=== PATIENT | female | born 1970 | race Caucasian/White ===

== ENCOUNTER 2017-12-13 20:13 | Emergency (ER) | payer OTHER ==
[~2017-12-13] VITALS: Ht 172.7 cm; Wt 147.4 kg
--- NOTE | 2017-12-13 20:13 | NUR ---
Pt was triaged by myself at 1999 , pt name was not registered by front counter clerk.
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
--- NOTE | 2017-12-13 20:16 | NUR ---
Patient to ER bed H1 to gown for evaluation. Side rails up.
[2017-12-13 20:17] VITALS: BP_SYST 136
[2017-12-13 20:21] VITALS: BP_SYST 132
== END 2017-12-13 20:21 ==
LOC: SED 20:13
DX: L98.8 Other specified disorders of the skin and subcutaneous tissue (principal); R03.0 Elevated blood-pressure reading, without diagnosis of hypertension; E66.9 Obesity, unspecified; Z68.42 Body mass index [BMI] 45.0-49.9, adult; Z88.6 Allergy status to analgesic agent; Z90.89 Acquired absence of other organs
CPT/HCPCS: 99283

== ENCOUNTER 2017-12-14 00:05 | Emergency (ER) | payer OTHER ==
[~2017-12-14] VITALS: Ht 172.7 cm; Wt 147.4 kg
[2017-12-14 00:14] VITALS: BP_SYST 163
[2017-12-14 01:12] VITALS: BP_SYST 142
== END 2017-12-14 01:12 | disposition home or self-care (01) ==
LOC: SED 00:05
DX: I10 Essential (primary) hypertension (principal); Z86.14 Personal history of Methicillin resistant Staphylococcus aureus infection; Z88.6 Allergy status to analgesic agent; Z90.49 Acquired absence of other specified parts of digestive tract
CPT/HCPCS: 99283

== ENCOUNTER 2019-05-24 11:11 | Inpatient (IN) | payer MEDICAID, OTHER ==
[~2019-05-24] VITALS: Ht 172.7 cm; Wt 202.8 kg
[2019-05-24 11:14] VITALS: BP_SYST 156
--- NOTE | 2019-05-24 11:19 | NUR ---
Patient to ER bed 06 to gown for evaluation. Side rails up.
--- NOTE | 2019-05-24 11:30 | NUR ---
pt arrives via bls s/p fall. Pt was found on the floor at [facility]. She was discovered by paramedics lying on her feces. Pt is not c/o any pain at the moment. However, she appears to be altered. blue line trimmer.
--- NOTE | 2019-05-24 11:35 | NUR ---
ER at bedside examining patient.
--- NOTE | 2019-05-24 12:01 | NUR ---
UA and UDS obtained via straight via and sent to lab.
--- NOTE | 2019-05-24 12:10 | NUR ---
cleaned pt w/ soup and water. Pt was covered w/ dry feces. noticed open sores over the pt's BUE and BLE Addendum: 05/24/19 at 1558 by DEEPA cleansed w/ soap and water
[2019-05-24 12:25] LABS: BASOPHILS # (AUTO) 0.1 K/uL (0.0-0.2); BASOPHILS % (AUTO) 0.8 % (0.0-2.0); EOSINOPHILS % (AUTO) 0.1 % (0.0-4.0); HEMATOCRIT 46.3 % (36-48); HEMOGLOBIN 14.6 g/dL (12.0-16.0); LYMPHOCYTES # (AUTO) 0.8 K/uL (1.0-5.5); LYMPHOCYTES % (AUTO) 11.2 % (20.5-51.5); MEAN CORPUSCULAR HEMOGLOBIN 29 pg (27-31); MEAN CORPUSCULAR HGB CONC 32 % (32-36); MEAN CORPUSCULAR VOLUME 90 fL (79.0-98.0); MONOCYTES # (AUTO) 0.4 K/uL (0.0-1.0); MONOCYTES % (AUTO) 4.9 % (1.7-9.3); NEUTROPHILS # (AUTO) 6.3 K/uL (1.8-7.7); PLATELET COUNT (AUTO) 251 K/uL (130-430); RED BLOOD CELL COUNT(AUTO) 5.14 MIL/uL (4.2-6.2); RED CELL DISTRIBUTION WIDTH 16.6 % (9.0-15.0); WHITE BLOOD COUNT (AUTO) 7.5 K/uL (4.8-10.8)
[2019-05-24 12:38] LABS: CREATININE 1.08 mg/dL (0.55-1.30); POTASSIUM 4.8 mmol/L (3.5-5.1)
[2019-05-24 12:44] LABS: ALBUMIN 3.5 g/dL (3.4-4.8); TOTAL BILIRUBIN 1.7 mg/dL (0.0-1.0)
[2019-05-24 13:08] LABS: BILIRUBIN,URINE NEGATIVE (NEGATIVE); BLOOD, URINE NEGATIVE (NEGATIVE); CLARITY/URINE CLEAR (CLEAR); COLOR,URINE YELLOW (YELLOW); GLUCOSE,URINE NEGATIVE (NEGATIVE); KETONES,URINE NEGATIVE (NEGATIVE); LEUKOCYTE ESTERASE ,URINE NEGATIVE (NEGATIVE); NITRITE, URINE NEGATIVE (NEGATIVE); PH,URINE 5.5 (5.0-8.0); PROTEIN URINE 1+ (NEGATIVE); UROBILINOGEN,URINE 0.2 (0.2-1.0)
--- NOTE | 2019-05-24 13:15 | NUR ---
Pt resting at this time, no S/S of distress.
[2019-05-24 13:18] LABS: BACTERIA,URINE FEW /HPF (None Seen); RBC,URINE 0-3 /HPF (0-3); WBC,URINE 0-3 /HPF (0-3)
[2019-05-24 13:25] LABS: BARBITURATE, URINE NEGATIVE (NEG <=200); BENZODIAZEPINE, URINE POSITIVE (NEG <=150); CANNABINOID, URINE POSITIVE (NEG <=50); COCAINE, URINE NEGATIVE (NEG <=150); METHAMPHETAMINES SCREEN,URINE POSITIVE (NEG <=500); OPIATE, URINE NEGATIVE (NEG <=100); PHENCYCLIDINE SCREEN,URINE NEGATIVE (NEG <=25); UR TRICYCLIC ANTIDEPRESSANTS NEGATIVE (NEG <=300); URINE AMPHETAMINE POSITIVE (NEG <=500); URINE METHADONE NEGATIVE (NEG <=200); URINE OXYCODONE SCREEN NEGATIVE (NEG <=100); URINE PROPOXYPHENE SCREEN NEGATIVE (NEG <=300)
[2019-05-24] MEDS ORDERED: PIPERACILLIN/TAZO 3.375 GM in NS 50 ML IV ONE (13:30)
[2019-05-24] MEDS ORDERED: ASPIRIN 81 MG TAB.CHEW PO ONE (13:45)
--- NOTE | 2019-05-24 13:45 | NUR ---
# 22 gauge angiocath placed to left hand. Use of asceptic technique. Opsite placed over site. Blood return noted. Blood for lab drawn from site. Flushed with 10 cc of normal saline. No evidence of infiltration noted. Patient tolerated well.
[2019-05-24] MEDS ORDERED: PIPERACILLIN/TAZOBACTAM 3.375 GM/VIAL (ZOSYN) IV ONE (13:53)
--- NOTE | 2019-05-24 14:51 | NUR ---
unable to obtain home med info at the moment
--- NOTE | 2019-05-24 15:35 | NUR ---
Patient will be admitted to care of Dr. Simons. Admitted to tele unit. Will go to room 123-a. Belongings list completed. Complete and up to date summary report printed. SBAR report to be given at bedside with opportunity for questions. Bedside report given to Belle SHERMAN
--- NOTE | 2019-05-24 15:45 | NUR ---
Opening Note received bedside SBAR report from ACTIVITIES COORDINATOR, patient brought to room via gurney, respirations even and unlabored on room air, no acute distress noted, patient placed on tele monitor, patient denies any pain, educated patient on use of call light and asked to call for assistance, patient verbalized understanding, call light in reach, bed in low and locked position, bed alarm on, contact isolation precautions in place.
[2019-05-24 16:00] VITALS: BP_SYST 178
--- NOTE | 2019-05-24 16:16 | NUR ---
Spoke with Physician spoke with Dr. Simons, informed him of patients current BP 178/117, new medication orders received, verified with telephone read back.
[2019-05-24] MEDS ORDERED: CARVEDILOL 25 MG TABLET (COREG) PO ONE (16:30)
--- NOTE | 2019-05-24 18:06 | NUR ---
Physician Rounds Dr. Simons at bedside examining patient.
[2019-05-24] MEDS ORDERED: LevALBUTEROL HCL 1.25 MG/0.5 ML *CONC.* VIAL.NEB (XOPENEX CONC.) INH PRN (18:15)
[2019-05-24] MEDS ORDERED: cloNIDine HCL 0.1 MG TABLET PO PRN (18:30)
[2019-05-24] MEDS ORDERED: LevALBUTEROL HCL 1.25 MG/0.5 ML *CONC.* VIAL.NEB (XOPENEX CONC.) INH ONE (18:30)
[2019-05-24 18:37] VITALS: BP_SYST 178
--- NOTE | 2019-05-24 18:42 | NUR ---
CONSULTATION Reason for Consultation: SUBSTANCE ABUSE Was consult called: Y Person who was notified: Consulting Physician: SAID Visual Arts Teacher Ordering Physician:
--- NOTE | 2019-05-24 18:45 | NUR ---
CONSULTATION Reason for Consultation: ABNORMAL CARDIAC ENZYMES Was consult called: Y Person who was notified: JERROD Consulting Physician: Senior Telecommunications Engineer Ordering Physician:
[2019-05-24] MEDS: cefTRIAXone 1 GM in D5W 50 ML IV SCH (19:00)
--- NOTE | 2019-05-24 19:35 | NUR ---
Closing Note bedside SBAR report given to receiving RN, patient resting in bed, no acute distress noted, respirations even and unlabored on room air, educated patient on use of call light and asked to call for assistance, patient verbalized understanding, call light in reach, bed in low and locked position, bed alarm on, care endorsed to table games shift manager RN.
--- NOTE | 2019-05-24 19:40 | NUR ---
Pt was received lying in bed sleeping, but easily arousable. Respirations are unlabored. Saline lock in left hand is without any signs of infiltration. Call light is with pt and bed alarm is on.
[2019-05-24 20:00] VITALS: BP_SYST 123
[2019-05-24] MEDS: CARVEDILOL 25 MG TABLET (COREG) PO SCH (20:36)
[2019-05-24] MEDS: AZITHROMYCIN 500 MG in NS 250 ML IV SCH (20:36)
[2019-05-24] MEDS: ENOXAPARIN SODIUM 40 MG/0.4 ML SYRINGE SUBCUT SCH (20:38)
--- NOTE | 2019-05-24 21:15 | NUR ---
Pt continues to sleep without any respiratory distress noted. Fall and safety precautions are in place.
--- NOTE | 2019-05-24 23:00 | NUR ---
Pt is sleeping without any distress noted. Saline lock is intact in left hand. Fall and safety precautions are in place.
[2019-05-25 00:17] VITALS: BP_SYST 122
[2019-05-25 00:20] VITALS: BP_SYST 133
--- NOTE | 2019-05-25 01:00 | NUR ---
Pt is sleeping comfortably in bed. security monitor is showing SR. Saline lock is intact in left hand. Fall and safety precautions are in place.
[2019-05-25] MEDS: LevALBUTEROL HCL 1.25 MG/0.5 ML *CONC.* VIAL.NEB (XOPENEX CONC.) INH SCH ×4 (01:01→20:01)
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
[2019-05-25 02:40] VITALS: BP_SYST 125
--- NOTE | 2019-05-25 03:32 | NUR ---
Pt is sleeping quietly in bed. laboratory monitor is showing SR with HR in the 60's. Fall and safety precautions are in place.
--- NOTE | 2019-05-25 05:00 | NUR ---
Sleeping comfortably in bed. Fall and safety precautions are in place.
[2019-05-25 05:56] LABS: CALCIUM 8.8 mg/dL (8.4-11.0); CREATININE 1.11 mg/dL (0.55-1.30); POTASSIUM 5.1 mmol/L (3.5-5.1)
--- NOTE | 2019-05-25 06:02 | NUR ---
Dr. Morrison also paged for elevated Troponin.
--- NOTE | 2019-05-25 06:02 | NUR ---
Paged Dr Morrison regarding consultation. Called the number [phone] Spoke with Tremaine. Reason for Consultation: Abnormal Cardiac Enzymes Consulting Physician: Enoch Montero Requesting Physician: Richard Mcnair
[2019-05-25 06:34] LABS: BASOPHILS # (AUTO) 0.1 K/uL (0.0-0.2); BASOPHILS % (AUTO) 1.1 % (0.0-2.0); EOSINOPHILS # (AUTO) 0.1 K/uL (0.0-0.4); EOSINOPHILS % (AUTO) 0.8 % (0.0-4.0); HEMATOCRIT 40.8 % (36-48); LYMPHOCYTES % (AUTO) 13.3 % (20.5-51.5); MEAN CORPUSCULAR HEMOGLOBIN 29 pg (27-31); MEAN CORPUSCULAR HGB CONC 32 % (32-36); MEAN CORPUSCULAR VOLUME 90 fL (79.0-98.0); MONOCYTES # (AUTO) 0.6 K/uL (0.0-1.0); MONOCYTES % (AUTO) 8.5 % (1.7-9.3); NEUTROPHILS # (AUTO) 5.5 K/uL (1.8-7.7); NEUTROPHILS % (AUTO) 76.3 % (40.0-70.0); PLATELET COUNT (AUTO) 254 K/uL (130-430); RED BLOOD CELL COUNT(AUTO) 4.51 MIL/uL (4.2-6.2); RED CELL DISTRIBUTION WIDTH 16.3 % (9.0-15.0); WHITE BLOOD COUNT (AUTO) 7.2 K/uL (4.8-10.8)
--- NOTE | 2019-05-25 06:34 | NUR ---
Pt is awake and resting comfortably in bed. All pt's needs were attended to. Fall and safety precautions are in place. Will endorse to day shift nurse.
--- NOTE | 2019-05-25 06:40 | NUR ---
Spoke with Dr. Morrison and he was informed pt's Troponin went up from 0.648 yesterday to 0.[address] Morrison was also informed pt had some V Tachs during the night while being transferred to a big boy bed, but pt was asymptomatic. 12 lead EKG ordered by Dr. Morrison.
--- NOTE | 2019-05-25 06:40 | NUR ---
ANOTHER CALL WAS CALLED TO CARDIO MD, DR ART, RE: ELEVATED TROP. SPOKE TO SOO.
--- NOTE | 2019-05-25 08:00 | NUR ---
initial notes rec patient asleep but arousable to stimuli. resp easy and unlabored. no sob noted. call light within reached and knows when to call for assistance. bed to the lowest position and side rails up and locked.
--- NOTE | 2019-05-25 09:41 | NUR ---
Nutrition Update Roberto Scale 14 noted. Pt admitted for pneumonia. Diet: 2 gm Na BMI: 76.9 kg/m2 RD to follow per nutrition care standards.
--- NOTE | 2019-05-25 09:47 | NUR ---
rounds seen by dr guallpa at bedside. due meds to be given. no osb noted. call light withn reached.
[2019-05-25] MEDS ORDERED: LISINOPRIL 10 MG TABLET (PRINIVIL) PO ONE (10:00)
[2019-05-25] MEDS ORDERED: FUROSEMIDE 40 MG TABLET PO ONE (10:00)
[2019-05-25] MEDS: ASPIRIN 81 MG TAB.CHEW PO SCH (10:11)
[2019-05-25] MEDS: CARVEDILOL 25 MG TABLET (COREG) PO SCH ×2 (10:11→21:02)
--- NOTE | 2019-05-25 10:30 | NUR ---
rounds seen by dr santiago. due meds given and terrence well and goes back to sleep after. no sob noted.
--- NOTE | 2019-05-25 12:00 | NUR ---
rounds father visited and updated re pt's condition and poc. no sob noted. call light within reached.
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
[2019-05-25 12:18] VITALS: BP_SYST 134
--- NOTE | 2019-05-25 16:02 | NUR ---
WOUND EVALUATION: Wound Consult received from Dr. Simons. Thank you, Dr. Simons, for the consult. Patient received in a geriatric bed with a low air-loss mattress (low air-loss therapy was already initiated), awake, alert, and oriented. Patient is unable to turn independently. Roberto Score is a 14. Past Medical History: Hypertension, Morbid Obesity, substance abuse. Recent Labs: WBC 6.8, RBC 4.42, hemoglobin 12.6, hematocrit 40.1, BUN 19, creatinine 1.11, GFR 55, BNP 399. Microbiology: Blood culture results 2 in progress. MRSA screen results negative. Intrinsic factors that delay wound healing: Morbid Obesity. Extrinsic factors that delay wound healing: Decreased mobility. Wound Assessment: 1. Right Anterior-Lateral Abdominal Fold: Acute on chronic wound, present on admission. Patient says it was a surgical wound that was debrided. Wound bed has 80% dark red tissue, 10% black tissue, 10% yellow tissue. Foul odor, scant yellow purulent drainage. Periwound macerated. Surrounding tissue has scar tissue. Wound measures 0.5 cm x 3.4 cm. Recommend: Cleanse wound with normal saline. Apply moisture barrier cream onto periwound. Apply Venelex ointment to wound bed. Cover with foam dressing by inserting dressing into abdominal fold with fingers to maintain contact with wound. Perform wound care daily, and as needed for dressing soiling or dislodgment. Apply inter-dry AG cloth into abdominal fold area (except for wound dressing). Change inter-dry AG cloth every 5 days, and as needed for soiling. 2. Right Second Toe, Plantar Aspect: Chronic wound, present on admission. Wound bed has 95% black eschar, 5% yellow eschar. No odor, no drainage. Periwound intact. Dry, stable. Wound measures 0.6 cm x 1.4 cm. 3. Right Plantar Heel: Chronic wound, present on admission. Wound bed has 90% yellow eschar, 10% white eschar. No odor, no drainage. Periwound intact. Dry, stable. Wound measures 0.7 cm x 0.9 cm. Recommend: No dressings needed. Continue to monitor sites every shift. 4. Left Plantar Heel: Fissure, present on admission. Fissure has 100% hard black tissue. No odor, no drainage. Periwound intact. Dry, stable. Fissure measures 3.5 cm x 0.4 cm x 0.3 cm. Recommend: Cleanse involved area with mild soap and water. Pat dry. Apply Eucerin cream to involved area. Perform site care twice a day. 5. Left Lateral Foot: Multiple areas of brown discoloration, present on admission. No odor, no drainage. Recommend: No dressing needed. Continue to monitor site every shift. Offload bilateral heels and feet at all times. 6. Left Lateral Oral Commissure: Angular Cheilitis, present on admission. Area has 90% dark red tissue, 10% black scab. No odor, no drainage. Periwound intact. Site measures 1.0 cm x 0.5 cm. Recommend: Cleanse wound with normal saline. Apply saline soaked 1x4 gauze 7. Left Lower Extremity: Erythema, cool, and nonpitting edema above the knees, Erythema, calor, and nonpitting edema below the knees, present on admission. 8. Right Lower Extremity: Erythema, calor, and nonpitting edema above the knees, Erythema, calor, and nonpitting edema below the knees, present on admission. 9. Left Foot: Dry skin, callused heel, present on admission. 10. Right Foot: Dry skin, callused heel, dry fissure on right great toe, present on admission. Recommend: Cleanse involved areas with mild soap and water. Pat dry. Apply Eucerin cream to involved areas. Perform site care twice a day. Also recommend: Encourage and assist patient as needed with repositioning every 2 hours with pillow support and off-load pressure areas with pillows for pressure re-distribution. Offload, elevate and float bilateral heels with pillows. Perform skin care and monitor skin integrity Q shift. Use moisture barrier cream on buttocks and other moisture susceptible areas QID and as needed for soiling. Maintain patient on a geriatric bed with a low air-loss mattress.
[2019-05-25 16:13] VITALS: BP_SYST 110
[2019-05-25] MEDS: chlordiazePOXIDE HCL 25 MG CAPSULE PO PRN ×2 (16:18→22:10)
[2019-05-25] MEDS: ACETAMINOPHEN 325 MG TABLET PO PRN (16:19)
[2019-05-25] MEDS: cefTRIAXone 1 GM in D5W 50 ML IV SCH (18:41)
[2019-05-25] MEDS ORDERED: KETOROLAC TROMETHAMINE 15 MG VIAL IVP ONE (19:00)
--- NOTE | 2019-05-25 19:09 | NUR ---
Opening Note Received patient resting in bed, awake and asking for another blanket. No s/sx of distress. IV site to left hand is KVO. Patient is on LOL mattress, side rails up 3x, bed is locked in lowest position and bed alarm is on. Call light w/in reach. Updated board and reviewed plan of care.
--- NOTE | 2019-05-25 19:10 | NUR ---
Dr. Ronak Simons at bedside making rounds. Patient stated I want to go smoke and he said he will provide nicotine patch.
[2019-05-25] MEDS ORDERED: NICOTINE 21 MG/24 HR PATCH.TD24 TD ONE (19:30)
[2019-05-25 20:00] VITALS: BP_SYST 128
--- NOTE | 2019-05-25 20:15 | NUR ---
BREATHING TX RT providing breathing treatment.
[2019-05-25] MEDS: CYCLOBENZAPRINE HCL 10 MG TABLET (FLEXERIL) PO SCH (20:38)
[2019-05-25] MEDS: AZITHROMYCIN 500 MG in NS 250 ML IV SCH (20:38)
[2019-05-25] MEDS: ENOXAPARIN SODIUM 40 MG/0.4 ML SYRINGE SUBCUT SCH (20:42)
[2019-05-25] MEDS: EMOLLIENT COMBINATION NO.73 78 GM CREAM..G. TP SCH (21:07)
--- NOTE | 2019-05-25 22:15 | NUR ---
Agitated Patient is restless and agitated, tossing and turning in bed; removed telemonitor leads. She keeps saying she wants to go back to hotel. Administered Librium as ordered. Will continue to monitor.
--- NOTE | 2019-05-26 01:05 | NUR ---
Restless Patient removed gown, pulled leads off and removed oxygen. She was reoriented to surroundings and cooperated. She is not due for Librium (for agitation). Will continue to monitor.
[2019-05-26 01:29] VITALS: BP_SYST 101
[2019-05-26] MEDS: KETOROLAC TROMETHAMINE 15 MG VIAL IVP SCH ×4 (01:39→20:07)
--- NOTE | 2019-05-26 01:47 | NUR ---
Toradol Scheduled Toradol given. Patient reports pain to both feet 7/10.
--- NOTE | 2019-05-26 02:13 | NUR ---
Resting Patient is presently calm, resting w/ eyes closed. Nonlabored breathing on 2l NC. Safety precautions in place.
[2019-05-26] MEDS: chlordiazePOXIDE HCL 25 MG CAPSULE PO PRN ×3 (04:08→19:01)
[2019-05-26] MEDS: ACETAMINOPHEN 325 MG TABLET PO PRN (04:10)
--- NOTE | 2019-05-26 04:22 | NUR ---
FOLLOW UP CONSULT FOR SPOKE TO BONG.
--- NOTE | 2019-05-26 04:26 | NUR ---
awake, restless Patient is awake, restless and removing the oxygen; She desaturates and gets SOB w/out oxygen. Administered librium as ordered and tylenol for report of mild pain to right abdominal wound are. Will continue to monitor.
[2019-05-26 06:27] LABS: THYROID STIMULATING HORMONE 4.51 uIu/mL (0.36-3.74)
[2019-05-26 06:39] LABS: BASOPHILS % (AUTO) 0.7 % (0.0-2.0); EOSINOPHILS % (AUTO) 0.3 % (0.0-4.0); HEMATOCRIT 40.1 % (36-48); HEMOGLOBIN 12.6 g/dL (12.0-16.0); LYMPHOCYTES # (AUTO) 0.7 K/uL (1.0-5.5); LYMPHOCYTES % (AUTO) 10.8 % (20.5-51.5); MEAN CORPUSCULAR HEMOGLOBIN 29 pg (27-31); MEAN CORPUSCULAR HGB CONC 32 % (32-36); MEAN CORPUSCULAR VOLUME 91 fL (79.0-98.0); MONOCYTES # (AUTO) 0.5 K/uL (0.0-1.0); MONOCYTES % (AUTO) 7.7 % (1.7-9.3); NEUTROPHILS # (AUTO) 5.5 K/uL (1.8-7.7); NEUTROPHILS % (AUTO) 80.5 % (40.0-70.0); PLATELET COUNT (AUTO) 217 K/uL (130-430); RED BLOOD CELL COUNT(AUTO) 4.42 MIL/uL (4.2-6.2); RED CELL DISTRIBUTION WIDTH 16.3 % (9.0-15.0); WHITE BLOOD COUNT (AUTO) 6.8 K/uL (4.8-10.8)
--- NOTE | 2019-05-26 06:40 | NUR ---
Toradol, Wound care administered scheduled Toradol and proceeded with wound dressing to right abdominal fold and to right foot. Patient tolerated.
--- NOTE | 2019-05-26 06:53 | NUR ---
Critical lab result Received critical lab value form [facility]; elevated Troponin 0.600. s/w. Dr. Morrison was paged, waiting for call back.
--- NOTE | 2019-05-26 07:14 | NUR ---
Dr. Morrison s/w Dr. Morrison, informed of critical troponin level, he did not provide new orders/
[2019-05-26] MEDS: LevALBUTEROL HCL 1.25 MG/0.5 ML *CONC.* VIAL.NEB (XOPENEX CONC.) INH SCH ×3 (07:18→20:30)
--- NOTE | 2019-05-26 07:20 | NUR ---
closing note Endorsed care to WHIT Molina. Patient needs met throughout shift. Presently no s/sx of distress. Safety precautions in place.
--- NOTE | 2019-05-26 08:00 | NUR ---
initial notes rec patient asleep but arousable to stimuli. ivl on the l hand intact. no infiltration noted. resp easy and unlabored. no sob noted. bed to the lowest position and side rails up and locked. call light within reached and knows when to call for assistance. will continue to monitor patient.
--- NOTE | 2019-05-26 08:41 | NUR ---
PAGED PAGED ,SAID AT [phone] SPOKE WITH SMITA.
[2019-05-26] MEDS ORDERED: FUROSEMIDE 40 MG TABLET PO SCH (09:00)
[2019-05-26] MEDS ORDERED: BALSAM PERU/CASTOR OIL 60 GM OINT...G. TP SCH (09:00)
[2019-05-26] MEDS ORDERED: NICOTINE 21 MG/24 HR PATCH.TD24 TD SCH (09:00)
[2019-05-26] MEDS ORDERED: LISINOPRIL 10 MG TABLET (PRINIVIL) PO SCH (09:00)
--- NOTE | 2019-05-26 09:18 | NUR ---
Nutrition Consult Nutrition Consult received for Wound R Abd Fold 05/25/191944. Pt was seen for Nutrition Assessment 05/26/19. Please refer to Nutrition Assessment for details.
--- NOTE | 2019-05-26 10:00 | NUR ---
rounds due meds were given and terrence well. sleeps at intervals and call light within reached.
[2019-05-26] MEDS: CYCLOBENZAPRINE HCL 10 MG TABLET (FLEXERIL) PO SCH ×2 (10:07→21:15)
[2019-05-26] MEDS: ASPIRIN 81 MG TAB.CHEW PO SCH (10:07)
[2019-05-26] MEDS: CARVEDILOL 25 MG TABLET (COREG) PO SCH ×3 (10:14→21:16)
[2019-05-26] MEDS: EMOLLIENT COMBINATION NO.73 78 GM CREAM..G. TP SCH ×3 (10:27→21:18)
[2019-05-26 12:37] VITALS: BP_SYST 113
--- NOTE | 2019-05-26 13:00 | NUR ---
rounds pain med was given as requested . dad came to visit patient. no sob noted. noted. bed to the lowest position.
[2019-05-26 16:45] VITALS: BP_SYST 108
[2019-05-26] MEDS: cefTRIAXone 1 GM in D5W 50 ML IV SCH (19:02)
--- NOTE | 2019-05-26 19:20 | NUR ---
Opening Note Received patient resting in bed, eyes closed, no s/sx of distress. IV site to left hand is KVO. Patient is on LOL mattress, side rails up 3x, bed is locked in lowest position and bed alarm is on. Call light w/in reach. Updated board.
[2019-05-26 20:00] VITALS: BP_SYST 118
--- NOTE | 2019-05-26 20:55 | NUR ---
RT RT is administering breathing treatment.
[2019-05-26] MEDS: AZITHROMYCIN 500 MG in NS 250 ML IV SCH (21:14)
[2019-05-26] MEDS: ENOXAPARIN SODIUM 40 MG/0.4 ML SYRINGE SUBCUT SCH ×2 (21:15→21:17)
--- NOTE | 2019-05-26 21:20 | NUR ---
Medications - refused Patient is restless and refused medications. I asked her if she is in pain and she yelled, no. I don't want to take anything, I just want to go home.
[2019-05-26] MEDS ORDERED: chlordiazePOXIDE HCL 25 MG CAPSULE PO ONE (21:45)
[2019-05-26] MEDS ORDERED: DULoxetine HCL 30 MG CAPSULE.DR (CYMBALTA) PO ONE (21:45)
--- NOTE | 2019-05-26 21:45 | NUR ---
s/w Dr. Simons S/W Dr. Simons and informed that patient is crying and agitated, I let him know her last dose of Librium was 2hrs ago. He said give one time 50mg Librium and 30mg Cybalta both PO. He said he does not want to give IV medication.
--- NOTE | 2019-05-26 21:56 | NUR ---
Dr. Ronak Zarate at bedside w/ patient. He spoke to her and recommends that she take her medication and informed and patient stated that she "refuses treatment, she wants to go to [facility]". Dr. Simons said if she wants to go AMA, she can, she is not on hold.
--- NOTE | 2019-05-26 22:06 | NUR ---
[facility] is [facility] and insisting on leaving. I informed her, that security is looking for clothes. The only belongings she has is a red top.
--- NOTE | 2019-05-26 23:54 | NUR ---
Wants to leave AMA and wants a taxi ride The patient wants a taxi ride to [facility] in [place], she said her belongings are in her room. I called [facility] and spoke w/ Rj, informed she was last there on 05/24/19. He said, he sees her name, though it does not indicate if her items are in lost and found. The renewable energy project manager is only person w/ bailee and will be in at 0900. I informed patient that she no longer has room at [place] [address] and she will have to wait for 9 am for her belongings and they will only give her a room if she pays upfront. Patient is upset and now wants to go home, she wants me to send cab to sent her home to [place]. I gave her the phone so she call home for her ride.
[2019-05-27] MEDS: KETOROLAC TROMETHAMINE 15 MG VIAL IVP SCH
--- NOTE | 2019-05-27 00:50 | NUR ---
AMA Patient is AOx4, she signed AMA, and is aware of what she is doing. She has been stating " I refuse treatment, no I do not want medicine, I want to go". She only had a red shirt, and per security, the hospital does not have large or extra large clothes. She was provided with two gowns, one to cover the front and one to cover her back and she put her red t-shirt on. She did not have shoes and was provided with brown socks. Hospital ID band was removed. She ambulated self with FWW to ER loby to wait for taxi ride.
[2019-05-27] MEDS: LevALBUTEROL HCL 1.25 MG/0.5 ML *CONC.* VIAL.NEB (XOPENEX CONC.) INH SCH (00:56)
[2019-05-27] MEDS ORDERED: DULoxetine HCL 30 MG CAPSULE.DR (CYMBALTA) PO SCH (09:00)
== END 2019-05-27 00:50 | disposition left against medical advice (07) | DRG 139 ==
LOC: SED 11:11 → STU 13:47
PROVIDERS: ADMIT Family Medicine; ATTEND Family Medicine
DX: J18.9 Pneumonia, unspecified organism (principal); I50.41 Acute combined systolic (congestive) and diastolic (congestive) heart failure; F33.2 Major depressive disorder, recurrent severe without psychotic features; E66.01 Morbid (severe) obesity due to excess calories; I42.0 Dilated cardiomyopathy; J44.0 Chronic obstructive pulmonary disease with (acute) lower respiratory infection; Z68.44 Body mass index [BMI] 60.0-69.9, adult; I11.0 Hypertensive heart disease with heart failure; G89.29 Other chronic pain; Z53.29 Procedure and treatment not carried out because of patient's decision for other reasons; S89.91XA Unspecified injury of right lower leg, initial encounter; W18.39XA Other fall on same level, initial encounter; Z59.0 Homelessness; Z87.891 Personal history of nicotine dependence; Z90.49 Acquired absence of other specified parts of digestive tract; Z88.5 Allergy status to narcotic agent; Z79.899 Other long term (current) drug therapy; Y93.89 Activity, other specified; Y92.89 Other specified places as the place of occurrence of the external cause; Y99.8 Other external cause status
CPT/HCPCS: 36415; 71045; 80048; 80053; 80307; 81000-TC; 82550-TC; 83605; 83735-TC; 83880; 84443-TC; 84484; 85025; 87040-TC; 87081; 93005; 93306; 94640; 94760; 96365; 99291; G0378; J0456; J0696; J1650; J1885; J2543; J7050; J7060; J7612

== ENCOUNTER 2019-05-27 06:01 | Emergency (ER) | payer MEDICAID, OTHER ==
[~2019-05-27] VITALS: Ht 172.7 cm; Wt 154.2 kg
[2019-05-27 06:05] VITALS: BP_SYST 137
--- NOTE | 2019-05-27 06:06 | NUR ---
Patient to ER bed 6 to gown for evaluation. Side rails up. Report given to Chris SHERMAN.
--- NOTE | 2019-05-27 06:10 | NUR ---
BROUGHT IN BY AMBULANCE FOR RIGHT FOOT PAIN WHICH IS CHRONIC. PLACED IN ROOM 6.
--- NOTE | 2019-05-27 06:55 | NUR ---
GAUGE 20 IV LINE ESTABLISHED TO THE RIGHT AC. BLOOD ALSO DRAWN AND SENT TO THE LAB.
[2019-05-27] MEDS ORDERED: KETOROLAC TROMETHAMINE 30 MG VIAL IVP ONE (07:00)
--- NOTE | 2019-05-27 07:10 | NUR ---
TORADOL 30 MG IVP GIVEN ORDERED.
--- NOTE | 2019-05-27 07:13 | NUR ---
PORTABLE CXR DONE.
[2019-05-27 07:18] LABS: BASOPHILS % (AUTO) 0.3 % (0.0-2.0); EOSINOPHILS % (AUTO) 0.1 % (0.0-4.0); HEMATOCRIT 42.5 % (36-48); HEMOGLOBIN 13.7 g/dL (12.0-16.0); LYMPHOCYTES # (AUTO) 0.5 K/uL (1.0-5.5); LYMPHOCYTES % (AUTO) 3.2 % (20.5-51.5); MEAN CORPUSCULAR HEMOGLOBIN 29 pg (27-31); MEAN CORPUSCULAR HGB CONC 32 % (32-36); MEAN CORPUSCULAR VOLUME 89 fL (79.0-98.0); MONOCYTES # (AUTO) 0.7 K/uL (0.0-1.0); MONOCYTES % (AUTO) 4.5 % (1.7-9.3); NEUTROPHILS # (AUTO) 13.6 K/uL (1.8-7.7); NEUTROPHILS % (AUTO) 91.9 % (40.0-70.0); PLATELET COUNT (AUTO) 236 K/uL (130-430); RED BLOOD CELL COUNT(AUTO) 4.78 MIL/uL (4.2-6.2); RED CELL DISTRIBUTION WIDTH 16.4 % (9.0-15.0); WHITE BLOOD COUNT (AUTO) 14.8 K/uL (4.8-10.8)
[2019-05-27 07:26] LABS: CALCIUM 9.2 mg/dL (8.4-11.0); CREATININE 1.97 mg/dL (0.55-1.30); POTASSIUM 5.6 mmol/L (3.5-5.1)
--- NOTE | 2019-05-27 07:30 | NUR ---
12 LEAD EKG DONE. REPORT NOTED BY . ENDORSED CARE TO CHRISTEN SHERMAN.
[2019-05-27 07:32] LABS: ALBUMIN 2.9 g/dL (3.4-4.8); TOTAL BILIRUBIN 1.1 mg/dL (0.0-1.0)
--- NOTE | 2019-05-27 07:33 | NUR ---
Received pt report. pt is lying in bed talking. pt stated "Im looking for my Mom".
--- NOTE | 2019-05-27 07:40 | NUR ---
Lab called with noted Elevated troponin at 0.519. notified.
[2019-05-27] MEDS ORDERED: ASPIRIN 325 MG TABLET PO ONE (07:45)
[2019-05-27] MEDS ORDERED: PIPERACILLIN/TAZO 3.375 GM in NS 50 ML IV ONE (08:00)
[2019-05-27] MEDS ORDERED: VANCOMYCIN HCL 1,000 MG in NS 250 ML IV ONE (08:00)
[2019-05-27] MEDS ORDERED: PIPERACILLIN/TAZOBACTAM 3.375 GM/VIAL (ZOSYN) IV ONE (08:15)
[2019-05-27] MEDS ORDERED: NACL 0.9% 2,500 ML IV ONE (08:15)
[2019-05-27] MEDS ORDERED: VANCOMYCIN HCL 1000 MG/VIAL IV ONE (08:16)
[2019-05-27] MEDS ORDERED: NS 500 ML IV ONE (09:45)
[2019-05-27] MEDS ORDERED: ACETAMINOPHEN 500 MG TABLET PO ONE (10:00)
[2019-05-27 10:51] LABS: CALCIUM 8.5 mg/dL (8.4-11.0); CREATININE 1.95 mg/dL (0.55-1.30); POTASSIUM 5.1 mmol/L (3.5-5.1)
--- NOTE | 2019-05-27 11:21 | NUR ---
pt has been up and walking to the toilet. pt used a walker for safety. RN noted pt with good gait. pt back in bed with side rails up. pt fell asleep.
[2019-05-27 12:26] LABS: BARBITURATE, URINE NEGATIVE (NEG <=200); BENZODIAZEPINE, URINE POSITIVE (NEG <=150); CANNABINOID, URINE POSITIVE (NEG <=50); COCAINE, URINE NEGATIVE (NEG <=150); METHAMPHETAMINES SCREEN,URINE POSITIVE (NEG <=500); OPIATE, URINE NEGATIVE (NEG <=100); PHENCYCLIDINE SCREEN,URINE NEGATIVE (NEG <=25); UR TRICYCLIC ANTIDEPRESSANTS NEGATIVE (NEG <=300); URINE AMPHETAMINE POSITIVE (NEG <=500); URINE METHADONE NEGATIVE (NEG <=200); URINE OXYCODONE SCREEN NEGATIVE (NEG <=100); URINE PROPOXYPHENE SCREEN NEGATIVE (NEG <=300)
[2019-05-27 12:52] VITALS: BP_SYST 154
--- NOTE | 2019-05-27 12:52 | NUR ---
Patient to be transferred to [facility] ED. Is being transferred due to higher level of care. Receiving facility has accepting physician and available space. ER physician has signed transfer form. Patient or responsible republican has agreed to transfer and signed form. Patient belongings inventoried and will be sent with patient. Copy of nursing notes, lab reports, EKG, Physicians Orders and X-rays to be sent with patient. Report called to WHIT Barboza at receiving facility. Receiving physician is Dr. Mehrdad Storm. [facility] ambulance service has been called for transfer. ETA is now.
== END 2019-05-27 12:52 | disposition short-term general hospital (02) ==
LOC: SED 06:01
DX: L03.115 Cellulitis of right lower limb (principal); N28.9 Disorder of kidney and ureter, unspecified; F15.10 Other stimulant abuse, uncomplicated; J18.9 Pneumonia, unspecified organism; R79.89 Other specified abnormal findings of blood chemistry; I10 Essential (primary) hypertension; Z88.6 Allergy status to analgesic agent; Z86.14 Personal history of Methicillin resistant Staphylococcus aureus infection; Z86.15 Personal history of latent tuberculosis infection
CPT/HCPCS: 36415; 71045; 73620; 80048; 80053; 80307; 82550; 83605; 83880; 84484; 85025; 87040; 87086; 96365; 96366; 96368; 96375; 99285; J1885; J2543; J3370; J7030; J7050; 93005